=== PATIENT | male | born 1945 | race Caucasian/White ===

== ENCOUNTER → 2024-04-24 | Outpatient (CLI) | payer MEDICARE, BC, SELFPAY ==
[2024-04-24 16:11] LABS: Prostate Specific Antigen < 0.10 ng/mL (0-4.00)
== END | disposition home or self-care (01) ==
LOC: COPL 13:52
PROVIDERS: PCP Family Medicine; Referring Provider Urology; Visit Provider Urology
DX: C61 Malignant neoplasm of prostate (principal)
CPT/HCPCS: 36415; 84153

== ENCOUNTER → 2024-04-29 | Outpatient (BNVA) | payer MEDICARE, BC, SELFPAY | END | disposition home or self-care (01) | PROVIDERS: PCP Family Medicine; Referring Provider Family Medicine; Visit Provider Urology | DX: C61 Malignant neoplasm of prostate (principal); N39.3 Stress incontinence (female) (male); N52.9 Male erectile dysfunction, unspecified; E11.9 Type 2 diabetes mellitus without complications; I10 Essential (primary) hypertension; Z80.42 Family history of malignant neoplasm of prostate; Z87.891 Personal history of nicotine dependence | CPT/HCPCS: 81003; 99212; G0463 ==

== ENCOUNTER → 2024-09-15 | Outpatient (BNVA) | payer MEDICARE, BC, SELFPAY | END | disposition home or self-care (01) | PROVIDERS: PCP Family Medicine; Referring Provider Family Medicine; Visit Provider Urology | DX: C61 Malignant neoplasm of prostate (principal); N39.3 Stress incontinence (female) (male); N52.9 Male erectile dysfunction, unspecified; E11.9 Type 2 diabetes mellitus without complications; I10 Essential (primary) hypertension; Z80.42 Family history of malignant neoplasm of prostate; E66.9 Obesity, unspecified; Z68.26 Body mass index [BMI] 26.0-26.9, adult; Z87.891 Personal history of nicotine dependence | CPT/HCPCS: 81003; 99212; G0463 ==

== ENCOUNTER → 2024-12-16 | Outpatient (BNVA) | payer MEDICARE, BC, SELFPAY | END | disposition home or self-care (01) | PROVIDERS: PCP Family Medicine; Referring Provider Family Medicine; Visit Provider Urology | DX: C61 Malignant neoplasm of prostate (principal); N52.9 Male erectile dysfunction, unspecified; E11.9 Type 2 diabetes mellitus without complications; I10 Essential (primary) hypertension; Z80.42 Family history of malignant neoplasm of prostate; N48.1 Balanitis | CPT/HCPCS: 81003; 99212; G0463 ==

== ENCOUNTER → 2025-03-03 | Outpatient (CLI) | payer MEDICARE, BC, SELFPAY ==
[2025-03-03 17:10] LABS: Prostate Specific Antigen < 0.10 ng/mL (0-4.00)
== END | disposition home or self-care (01) ==
LOC: COPL 15:36
PROVIDERS: PCP Family Medicine; Referring Provider Urology; Visit Provider Urology
DX: C61 Malignant neoplasm of prostate (principal)
CPT/HCPCS: 36415; 84153

== ENCOUNTER → 2025-03-10 | Outpatient (CLI) | payer MEDICARE, BC, SELFPAY ==
--- NOTE | 2025-03-10 15:43 | XR_ITS ---
Examination: Bilateral knees 2 views technique: Bilateral AP knees standing single view, bilateral PA knees standing flexion single view Date and time: March 10, 2025, 1611 hrs. Indications: Bilateral knee pain 2 years. Findings: Severe osteopenia. Advanced narrowing, [id number], medial joint spaces No fractures Impression: Advanced narrowing, [id number], medial joint spaces
== END | disposition home or self-care (01) ==
PROVIDERS: PCP Family Medicine; Referring Provider Orthopaedic Surgery; Visit Provider Orthopaedic Surgery
DX: M25.862 Other specified joint disorders, left knee (principal); M25.861 Other specified joint disorders, right knee
CPT/HCPCS: 73565

== ENCOUNTER → 2025-03-20 | Outpatient (BNVA) | payer MEDICARE, BC, SELFPAY | END | disposition home or self-care (01) | PROVIDERS: PCP Family Medicine; Referring Provider Family Medicine; Visit Provider Urology | DX: C61 Malignant neoplasm of prostate (principal); N48.1 Balanitis; R32 Unspecified urinary incontinence; E11.9 Type 2 diabetes mellitus without complications; M25.569 Pain in unspecified knee; I10 Essential (primary) hypertension | CPT/HCPCS: 81003; 99212; G0463 ==

== ENCOUNTER 2025-05-21 10:21 | Outpatient (AMB) | payer MEDICARE, BC, SELFPAY ==
[2025-05-21 11:03] VITALS: BP 167/77; PULSE 71; RESP 18; TEMP 36.3; O2SAT 94; BMI 25.9
--- NOTE | 2025-05-21 11:03 | GSCOFFNT_ITS ---
Vital Signs - [facility] 05/21/25 11:03 Height 1.73 m Height Method Stated Weight 77.678 kg Weight Measurement Method Standing Scale BMI 25.9 BP 167/77 H Blood Pressure Source Automatic Cuff Blood Pressure Location Right Upper Arm Position Sitting Respiration 18 Pulse 71 Pulse Source Monitor Temp 97.4 F Temp Source Temporal Artery Scan Pulse Oximetry (%) 94 L Oxygen Delivery Method Room Air Med/Allergies Allergies & Medications Allergies Sulfa (Sulfonamide Antibiotics) Allergy (Verified 05/21/25 11:04) Medication Reconciliation dapagliflozin propanediol 5 mg tablet (Farxiga) 5 mg PO QDAY 09/15/21 [History Confirmed 05/21/25] glipizide 10 mg tablet 10 mg PO QDAY 09/15/21 [History Confirmed 05/21/25] insulin human U-100 NPH-regulr 70-30 mix 100 unit/mL subcutaneous susp (Humulin 70/30 U-100 Insulin) 15 unit subcut QAM 09/15/21 [History Confirmed 05/21/25] linagliptin 5 mg tablet (Tradjenta) 5 mg PO QDAY 09/15/21 [History Confirmed 05/21/25] losartan 50 mg-hydrochlorothiazide 12.5 mg tablet 1 tab PO QDAY 09/15/21 [History Confirmed 05/21/25] aspirin 81 mg tablet,delayed release 81 mg PO QDAY 09/28/22 [History Confirmed 05/21/25] cyclobenzaprine 10 mg tablet 10 mg PO .PRN 04/29/24 [History Confirmed 05/21/25] ibuprofen 600 mg tablet 600 mg PO Q8H PRN 04/29/24 [History Confirmed 05/21/25] clotrimazole-betamethasone 1 %-0.05 % topical cream 1 applic topical BID 12/16 [History Confirmed 05/21/25] oxybutynin chloride 10 mg tablet,extended release 24 hr 10 mg PO QDAY 12/16/24 [History Confirmed 05/21/25] MA Intake Visit Data Collection New Patient or Established: Established Patient (seen at [facility] within 3 years) Seen by Clinical Staff ONLY (RN/MA): No Reason for Visit:: BILATERAL KNEE OSTEOARTHRITIS Pain Present Currently: No Pain scale:: 0 Pain Scale Used: Wooten-Chambers/Numerical Clinical Product Manager Required: No PCP or OBGYN visit in last 3 months: Yes Hx Now: No Do You Feel Safe at Home: Yes Authorities Contacted: N/A Smoking Status Smoking Status: Former smoker Immunization / Flu Flu Vaccine in the Last 12 Months: No Flu Vaccine Exclusion Criteria: No Exclusion Criteria Past Medical History Past Medical History CARDIAC: Positive Hypertension; Negative Congestive Heart Failure RESPIRATORY: Negative Chronic Obstructive Pulmonary Disease (COPD) GENITOURINARY: Negative Renal Disease ENDOCRINE: Positive Diabetes Mellitus Type 2; Negative Diabetes Mellitus Type 1 Social History SMOKING STATUS: Smoking status: Former smoker Travel Risk Travel Hx Recent Travel: No HPI HPI Narrative HISTORY OF PRESENT ILLNESS I, Reymundo Colon, have obtained verbal consent from the patient, to be recorded during this encounter which may include, but not limited to, medical history, examination, treatment plans, and relevant health information.? Patient was informed that recording will be read and reviewed by myself before inclusion in the medical chart. Nile is a pleasant 80-year-old male with bilateral knee arthritis. He reports the pain is minimal. He tried cortisone injection in the past with minimal relief. He has also tried anti-inflammatories. He reports that he is doing well and has minimal pain but he is here because Dr. Valladares told him that he has [id number] arthritis Results Patient is in no acute distress and is cooperative with the examination today. Breathing is nonlabored. In no respiratory distress. Bilateral extremities were evaluated and demonstrates sensation intact to light touch. Palpable pedal pulses are present. No significant edema is present. Bilateral hips were examined. The patient has no pain with log roll of the hips. Internal rotation to 30 degrees and external rotation to 30 degrees is painless. Negative FADIR. The left knee was examined. The left knee is in varus alignment. Range of motion from 0-115 degrees. Knee is stable to varus and valgus as well as AP translation with <5mm. Patient has a negative McMurrays. There is no pain with patellofemoral compression and no crepitus noted. The knee is tender to palpation medially. The right knee was also examined. The right knee is in varus alignment. Range of motion from 0-120 degrees. Knee is stable to varus and valgus as well as AP translation with <5mm. Patient has a negative McMurrays. There is no pain with patellofemoral compression and no crepitus noted. The knee is tender to palpation medially. Assessment & Plan Diagnosis / Problem List (1) Degenerative arthritis of knee, bilateral: Status: Acute Assessment & Plan: ASSESSMENT AND PLAN 1. Bilateral knee pain: Patient is a 80-year-old male with bilateral knee arthritis. He has tried anti- inflammatories. We discussed nonoperative and operative options. Given that he has no pain he would like to continue with conservative treatment at this time. We discussed that a total knee replacement is an option if he has pain as he has severe arthritis of both knees. he can see me on an as needed basis Advanced Care Planning Advance care planning discussed with:: patient Office Procedures GNS Level of Care Nursing/Assessment Patient Status: Established Patient Nursing Assessment/Reassesment: Medication Reconciliation, Update PMH in EMR and Vital Signs Coordination of Care: Complex Care and Chronic Disease 1-5, Education Complex Pt/Fam, Consent,records obtained, informed consent, Results/Orders obtained and Staff clarify orders Established Patient Charge Established Patient Point Assignment: 95 Established Patient Point Charge: EP Level 3 (80-115) Patient Portal Questionaires Social History Tobacco History Smoking Status: Former smoker Domestic Abuse History Do You Feel Safe at Home: Yes Review of Systems Report any current symptoms Only answer those that you have currently: Past Medical History Past Medical History Have you ever been diagnosed with any of the following: Cardiology Problems Congestive Heart Failure: No Hypertension: Yes Respiratory Problems Chronic Obstructive Pulmonary Disease (COPD): No Genital/Urinary Problems Renal Disease: No Endocrine Problems Diabetes Mellitus Type 1: No Diabetes Mellitus Type 2: Yes
== END 2025-05-21 11:19 | disposition home or self-care (01) ==
LOC: HODSRG 10:21
PROVIDERS: PCP Orthopaedic Surgery; Referring Provider Orthopaedic Surgery; Supervising Provider Orthopaedic Surgery Adult Reconstructive Orthopaedic Surgery; Visit Provider Orthopaedic Surgery Adult Reconstructive Orthopaedic Surgery
DX: M17.0 Bilateral primary osteoarthritis of knee (principal); I10 Essential (primary) hypertension; E11.9 Type 2 diabetes mellitus without complications; Z79.4 Long term (current) use of insulin
CPT/HCPCS: 99213; G0463